=== PATIENT | female | born 1990 | race Caucasian/White ===

== ENCOUNTER 2017-12-22 15:53 | Observation (INO) | payer SELFPAY ==
[2017-12-22] MEDS ORDERED: ONDANSETRON HCL IV 4 MG/2 ML VIAL IV ONE (16:18)
[2017-12-22] MEDS ORDERED: 0.9 % SODIUM CHLORIDE 1,000 ML BAG IV ONE ×2 (16:18→17:09)
--- NOTE | 2017-12-22 16:23 | Emergency Department Record ---
History of Present Illness - General Chief complaint: Vomiting Stated complaint: VOMITING/ WORM IN VOMIT Time Seen by Provider: 12/22/17 16:09 Source: Patient Mode of Arrival: Ambulatory Limitations: No limitations - History of Present Illness Initial comments: The patient is here due to having nausea, vomiting, diarrhea, and AP off and on for 2 days. She was vomiting at one point and felt she may have vomited a small worm up. She denies any fever, worms in her stool, any hx of abdominal surgeries , or any bleeding in the stool or vomit and any recent travel. The patient states she has had multiple episodes of vomiting for 2 days along with watery diarrhea. The patient denies any hx of heavy alcohol use. MD complaint: Abdominal pain, Nausea, Vomiting Onset/Timin -: Days(s) Location: Diffuse Radiation: None Improves with: None Worsens with: None Associated Symptoms: Fever/chills, Headaches, Loss of appetite, Nausea/vomiting - Related Data Home Medications Medication Instructions Recorded Confirmed Last Taken No Home Med [NO HOME MEDS] 12/22/17 12/22/17 Unknown Allergies Allergy/AdvReac Type Severity Reaction Status Date / Time No Known Drug Allergies Allergy Verified 12/22/17 16:11 Travel Screening - Travel/Exposure Within Last 30 Days Have you traveled within the last 30 days?: No Review of Systems Constitutional: Denies: Chills, Fever Eyes: Denies: Eye discharge ENT: Denies: Congestion Respiratory: Denies: Cough, Dyspnea Past Medical History - SOCIAL HISTORY Smoking Status: Current every day smoker Alcohol Use: None Drug Use: None - RESPIRATORY Hx Respiratory Disorders: No - CARDIOVASCULAR Hx Cardio Disorders: No - NEURO Hx Neuro Disorders: No - GI Hx GI Disorders: No - Hx Genitourinary Disorders: No - ENDOCRINE Hx Endocrine Disorders: No - MUSCULOSKELETAL Hx Musculoskeletal Disorders: No - PSYCH Hx Psych Problems: No - HEMATOLOGY/ONCOLOGY Hx Hematology/Oncology Disorders: No Family Medical History Any Significant Family History?: No Physical Exam - General General Appearance: Alert, Oriented x3, Cooperative, No acute distress - Head Head exam: Atraumatic, Normocephalic, Normal inspection - Eye Eye exam: Normal appearance, PERRL, EOMI - ENT Throat exam: Normal inspection. negative: Tonsillar erythema, Tonsillar exudate - Neck Neck exam: Normal inspection - Respiratory Respiratory exam: Normal lung sounds bilaterally. negative: Respiratory distress - Cardiovascular Cardiovascular Exam: Regular rate, Normal rhythm, Normal heart sounds, Tachycardia - GI/Abdominal GI/Abdominal exam: Soft, Normal bowel sounds, Tenderness (There is very mild diffuse tenderness in all 4 quads but the abdomen is soft.). negative: Distended, Guarding, Rebound, Rigid - Extremities Extremities exam: Normal inspection, Full ROM, Normal capillary refill. negative: Tenderness - Neurological Neurological exam: Alert. negative: Motor sensory deficit Course Vital Signs 12/22/17 15:59 Temperature 98.1 F Pulse Rate [ 125 H Pulse Ox Probe] Respiratory 16 Rate Blood Pressure 136/86 [Left Arm] Pulse Ox 98 - Reevaluation(s) Reevaluation #1: The patient is doing a lot better at this time. She states the nausea is much improved and she is able to eat ice chips. She denies any AP and on exam her abdomen is very soft and nontender in all 4 quads. I did discuss the significant dehydration she is demonstrating on her lab work and did recommend overnight hospital admission and the patient did agree. I then did discuss the case with Ariadna (RECEPTIONIST CLERK) and she does accept the patient for Dr. Villar. 12/22/17 17:31 Reevaluation #2: The patient is doing very well after the Ativan. I did discuss the alcohol level of .05 with her and now she states she was binge drinking for the last 2 days. The patient no longer is tachycardic and has no tremors and she clearly appears to be in mild alcohol withdrawal at this time. She does have Ativan ordered and will continue that on the floor. I also did discuss the recent events with Ariadna. 12/22/17 17:54 Reevaluation #3: The patient is doing much better at this time. She has no nausea, vomiting, or diarrhea. The patient is no longer exhibiting any tremors and she did keep her oral potassium down with no vomiting. 12/22/17 18:28 Medical Decision Making - Data Complexity MDM Data: Labs Ordered and/or Reviewed - Lab Data Result diagrams: 12/22/17 16:42 12/22/17 16:42 Disposition Disposition: Admit Clinical Impression: Dehydration Disposition: Still a Patient at [facility] Decision to Admit: Admit from ER Decision to Admit Date: 12/22/17 Decision to Admit Time: 17:34 Accepting Physician: Jian. Time Discussed w/Accepting Physician: 17:34 Condition: (2) Stable Time of Disposition: 17:34 Quality - Quality Measures Quality Measures: N/A - Blood Pressure Screening View Details: Yes Does Patient Have Any of the Following: No Blood Pressure Classification: Pre-Hypertensive BP Reading Systolic Measurement: 117 Diastolic Measurement: 80 Screening for High Blood Pressure: < Pre-Hypertensive BP, F/U Documented > [ [id number]] Pre-Hypertensive Follow-up Interventions: Referral to alternative/primary care provider.
[2017-12-22 16:45] LABS: HEMATOCRIT 38.6 % (35.0-47.0); HEMOGLOBIN 12.8 gm/dl (11.6-16.0); MEAN CORPUSCULAR HEMOGLOBIN 34.5 pg (27-33); MEAN CORPUSCULAR HGB CONC 33.2 g/dl (32-36); MEAN PLATELET VOLUME 9.4 fl (7.4-10.4); PLATELET COUNT 203 K/uL (130-400); RED BLOOD COUNT 3.71 M/uL (3.80-5.40); RED CELL DISTRIBUTION WIDTH 13.7 % (11.5-14.5)
[2017-12-22 16:58] LABS: BLOOD UREA NITROGEN 9 mg/dL (6-20)
[2017-12-22 16:59] LABS: CREATININE 0.5 mg/dL (0.5-0.9); EST GLOMERULAR FILTRATION RATE > 60 mL/min; TOTAL PROTEIN 7.5 g/dL (6.6-8.7)
[2017-12-22 17:01] LABS: GLUCOSE,RANDOM 73 mg/dL (74-109)
[2017-12-22 17:03] LABS: ALT/SGPT 128 U/L (<33)
[2017-12-22 17:04] LABS: ALBUMIN 4.7 g/dL (4.0-5.0); ALKALINE PHOSPHATASE 91 U/L (35-104); AST/SGOT 362 U/L (10.0-35.0); BILIRUBIN,DIRECT 0.6 mg/dL (0-0.3); LIPASE 22 U/L (13-60)
[2017-12-22 17:06] LABS: C-REACTIVE PROTEIN < 0.50 mg/dL (<0.5)
[2017-12-22 17:13] LABS: URINE APPEARANCE CLEAR; URINE BILIRUBIN NEGATIVE (NEGATIVE); URINE BLOOD TRACE-I (NEGATIVE); URINE COLOR YELLOW; URINE GLUCOSE (UA) NEGATIVE (NEGATIVE); URINE LEUKOCYTE ESTERASE NEGATIVE (NEGATIVE); URINE NITRITE NEGATIVE (NEGATIVE); URINE PROTEIN TRACE (NEGATIVE); URINE UROBILINOGEN 0.2 E.U./dL (0.20 - 1.00)
[2017-12-22 17:17] LABS: AMPHETAMINE SCREEN URINE NOT DETECTED; BARBITURATE SCREEN URINE NOT DETECTED; BENZODIAZEPINE SCREEN URINE NOT DETECTED; COCAINE SCREEN URINE NOT DETECTED; METHADONE SCREEN URINE NOT DETECTED; METHAMPHETAMINE SCREEN NOT DETECTED; OPIATE SCREEN URINE NOT DETECTED; OXYCODONE SCREEN URINE NOT DETECTED; PHENCYCLIDINE SCREEN URINE NOT DETECTED; PROPOXYPHENE SCREEN URINE NOT DETECTED; THC SCREEN URINE NOT DETECTED; TRICYCLIC ANTIDEPRESSANT SCRN NOT DETECTED
[2017-12-22 17:23] LABS: URINE HYALINE CAST 0 - 5 /lpf; URINE RBC 0 - 2 (NONE SEEN); URINE WBC 0 - 2 (0-2/hpf)
[2017-12-22] MEDS ORDERED: LORAZEPAM 2 MG/ML VIAL IV ONE (17:24)
[2017-12-22] MEDS ORDERED: POTASSIUM CHLORIDE 20 MEQ TABLET PO ONE (17:35)
[2017-12-22] MEDS ORDERED: LORAZEPAM 2 MG/ML VIAL IV PRN (17:38)
[2017-12-22] MEDS ORDERED: PANTOPRAZOLE SODIUM IV 40 MG VIAL IV SCH (18:53)
[2017-12-22] MEDS ORDERED: ACETAMINOPHEN 500 MG TABLET PO PRN (18:53)
[2017-12-22] MEDS ORDERED: ONDANSETRON HCL IV 4 MG/2 ML VIAL IVP PRN (18:53)
[2017-12-22] MEDS: POTASSIUM CHLORIDE/D5-0.9%NACL 20 MEQ/1,000 ML BAG IV SCH (19:35)
[2017-12-23] MEDS: POTASSIUM CHLORIDE/D5-0.9%NACL 20 MEQ/1,000 ML BAG IV SCH (03:47)
[2017-12-23 06:11] LABS: BASO % 0.2 % (0-6); EOS % 0.9 % (0-6); GRAN % 52.3 % (47-80); HEMATOCRIT 35.4 % (35.0-47.0); HEMOGLOBIN 11.5 gm/dl (11.6-16.0); LYMPH % 37.6 % (16-45); MEAN CORPUSCULAR HEMOGLOBIN 34.1 pg (27-33); MEAN CORPUSCULAR HGB CONC 32.5 g/dl (32-36); MEAN PLATELET VOLUME 9.6 fl (7.4-10.4); PLATELET COUNT 152 K/uL (130-400); RED BLOOD COUNT 3.37 M/uL (3.80-5.40); RED CELL DISTRIBUTION WIDTH 13.7 % (11.5-14.5); WHITE BLOOD COUNT W/O DIFF 4.3 K/uL (4.2-12.2)
[2017-12-23 06:28] LABS: ALBUMIN 3.5 g/dL (4.0-5.0); BILIRUBIN,DIRECT 0.4 mg/dL (0-0.3); BILIRUBIN,TOTAL 1.4 mg/dL (0.2-1.0); TOTAL PROTEIN 5.7 g/dL (6.6-8.7)
[2017-12-23 06:39] LABS: BLOOD UREA NITROGEN 4 mg/dL (6-20); CREATININE 0.4 mg/dL (0.5-0.9); EST GLOMERULAR FILTRATION RATE > 60 mL/min; GLUCOSE,RANDOM 130 mg/dL (74-109)
[2017-12-23] MEDS ORDERED: ONDANSETRON 4 MG ODT TABLET SL PRN (09:57)
--- NOTE | 2017-12-23 09:58 | History & Physical ---
History of Present Illness - Date of Service Date of Service for History & Physical: 12/23/17 - History of Present Illness Admitting Diagnosis: 1. Acute Severe Dehydration History of Present Illness: Ms. Moulton is a 27 year-old female who presented to the ED the afternoon of 12/22/17 with complaint of nausea, vomiting, diarrhea, and abdominal pain intermittently for 2 days. She was vomiting at one point and she thought she may have vomited up a small worm. She denies any fever, worms in her stool, history of abdominal surgeries, or blood in her vomit or stool and recent travel. She stated that she has had multiple episodes of vomiting for 2 days along with watery diarrhea. She denied any history of heavy alcohol use. She does not take any medications and she does not have any pertinent health history. In the ED, her heart rate was 125, BP 136/86, RR 16, oxygen of 98% on room air, and temp of 98.1F. She did have some tremors. Her labs demonstrated K of 3.2 (treated with Klor), AST 362, ALT 128, anion gap of 36, and etoh of 0.052. She was treated with zofran and ativan and afterwards, she reported feeling much better. She denied nausea, her tremors and tachycardia improved as well. Dr. Lewis did discuss likely mild alcohol withdrawal based on lab results and physical assessment finding and pt. did admit to binge drinking over the last 2 days. She was admitted for observation for her dehydration demonstrated on her labs and suspected mild alcohol withdrawal. 12/23/17 1000: Pt. is resting comfortably in bed. She states that she has not had any diarrhea since admission and her nausea has greatly improved. She was slightly nauseated this morning after breakfast, but she was treated with IV zofran and symptoms improved. Her labs have improved: K 3.8, Anion gap now 15.0, AST 210 and ALT 85. Will plan to discharge home with zofran PO and recommend increasing fluids and stopping alcohol consumption. Also, highly recommended pt. to establish care with PCP. Travel Screening - Travel/Exposure Within Last 30 Days Have you traveled within the last 30 days?: No - Travel/Exposure Within Last Year Have you traveled outside the [place] in the last year?: No - Additonal Travel Details Have you been exposed to anyone with a communicable illness?: No - Travel Symptoms Symptom Screening: Weakness, Diarrhea, Vomiting, Stomach Pain, Lack of Appetite Review of Systems Constitutional: Denies: Chills, Fever Eyes: Denies: Eye discharge ENT: Denies: Congestion Respiratory: Denies: Cough, Dyspnea Cardiovascular: Reports: As per HPI. Denies: Arrhythmia, Chest pain, Dyspnea on exertion, Edema, Murmurs, Orthopnea, Palpitations, Paroxysmal nocturnal dyspnea, Rheumatic Fever, Syncope Endocrine: Reports: As per HPI. Denies: Fatigue, Heat or cold intolerance, Polydipsia, Polyuria Gastrointestinal: Reports: As per HPI, Nausea. Denies: Abdominal pain, Constipation, Diarrhea, Hematemesis, Hematochezia, Melena, Vomiting Genitourinary: Reports: As per HPI. Denies: Abnormal menses, Discharge, Dyspareunia, Dysuria, Frequency, Hematuria, Incontinence, Retention, Urgency Musculoskeletal: Reports: As per HPI. Denies: Arthralgia, Back pain, Gout, Joint swelling, Myalgia, Neck pain Skin: Reports: As per HPI. Denies: Bruising, Change in color, Change in hair/ nails, Lesions, Pruritus, Rash Neurological: Reports: As per HPI. Denies: Abnormal gait, Confusion, Headache, Numbness, Paresthesias, Seizure, Tingling, Tremors, Vertigo, Weakness Psychiatric: Reports: As per HPI. Denies: Anxiety, Auditory hallucinations, Depression, Homicidal thoughts, Suicidal thoughts, Visual hallucinations Hematological/Lymphatic: Reports: As per HPI. Denies: Anemia, Blood Clots, Easy bleeding, Easy bruising, Swollen glands Past Medical History - SOCIAL HISTORY Smoking Status: Current every day smoker Alcohol Use: Occasional Drug Use: None - RESPIRATORY Hx Respiratory Disorders: No - CARDIOVASCULAR Hx Cardio Disorders: No - NEURO Hx Neuro Disorders: No - GI Hx GI Disorders: No - Hx Genitourinary Disorders: No - ENDOCRINE Hx Endocrine Disorders: No - MUSCULOSKELETAL Hx Musculoskeletal Disorders: No - PSYCH Hx Psych Problems: No - HEMATOLOGY/ONCOLOGY Hx Hematology/Oncology Disorders: No Family Medical History Any Significant Family History?: No H&P Meds/Allergies - Allergies Allergies: Allergies Allergy/AdvReac Type Severity Reaction Status Date / Time No Known Drug Allergies Allergy Verified 12/22/17 16:11 - Home Medications Previous Rx's Medication Instructions Recorded Ondansetron [Zofran Odt] 4 mg SL Q8H PRN #15 tab.rapdis 12/23/17 - Active Medications Active Medications: Current Medications Acetaminophen (Tylenol 500mg Tab) 500 mg PO Q6H PRN PRN Reason: PAIN/TEMP Potassium Chloride/Dextrose/Sod Cl () 20 meq in 1,000 mls @ 125 mls/hr IV Q8H [facility] Last Admin: 12/23/17 03:47 Dose: 125 mls/hr Lorazepam (Ativan) 1 mg IV Q8H PRN PRN Reason: ANXIETY Ondansetron HCl (Zofran) 4 mg IVP Q4H PRN PRN Reason: NAUSEA Last Admin: 12/23/17 07:41 Dose: 4 mg Pantoprazole Sodium (Protonix Iv) 40 mg IV DAILY [facility] Last Admin: 12/22/17 20:08 Dose: 40 mg Physical Exam - Vital Signs Vital Signs: Vital Signs - Last 24 Hrs Temp Pulse Resp BP Pulse Ox 12/23/17 09:00 98.7 F 80 18 121/84 100 12/23/17 05:00 98.9 F 79 18 122/81 100 12/23/17 00:13 99.5 F 97 H 18 99/55 99 12/22/17 21:22 99 H 18 12/22/17 20:00 98.9 F 99 H 18 115/67 99 12/22/17 18:40 98.1 F 117 H 20 121/81 98 12/22/17 18:34 97.5 F L 96 H 16 117/80 100 12/22/17 17:34 105 H 20 132/83 99 12/22/17 15:59 98.1 F 125 H 16 136/86 98 - General General Appearance: Alert, Oriented x3, Cooperative, No acute distress Limitations: No limitations - Head Head exam: Atraumatic, Normocephalic, Normal inspection - Eye Eye exam: Normal appearance, PERRL, EOMI - ENT Throat exam: Normal inspection. negative: Tonsillar erythema, Tonsillar exudate - Neck Neck exam: Normal inspection - Respiratory Respiratory exam: Normal lung sounds bilaterally. negative: Respiratory distress - Cardiovascular Cardiovascular Exam: Regular rate, Normal rhythm, Normal heart sounds, Tachycardia - GI/Abdominal GI/Abdominal exam: Soft, Normal bowel sounds, Tenderness (There is very mild diffuse tenderness in all 4 quads but the abdomen is soft.). negative: Distended, Guarding, Rebound, Rigid - Extremities Extremities exam: Normal inspection, Full ROM, Normal capillary refill. negative: Tenderness - Neurological Neurological exam: Alert. negative: Motor sensory deficit Results - Labs Result Diagrams: 12/23/17 05:50 12/23/17 05:50 Labs Last 24 Hours: Laboratory Results - last 24 hr 12/22/17 12/22/17 12/22/17 16:35 16:42 16:42 WBC 11.0 RBC 3.71 L Hgb 12.8 Hct 38.6 MCV 104.0 H MCH 34.5 H MCHC 33.2 RDW 13.7 Plt Count 203 MPV 9.4 Gran % Neutrophils % 91.0 H Lymphocytes % Monocytes % Eosinophils % Not Reportable Basophils % Not Reportable Lymphocytes 6.0 L Monocytes 3.0 Sodium 142 Potassium 3.2 L Chloride 92 L Carbon Dioxide 14.0 L Anion Gap 36.0 H BUN 9 Creatinine 0.5 Estimated GFR > 60 Random Glucose 73 L Calcium 8.5 L Total Bilirubin 1.60 H Direct Bilirubin 0.6 H AST 362 H ALT 128 H Alkaline Phosphatase 91 C-Reactive Protein < 0.50 Total Protein 7.5 Albumin 4.7 Lipase 22 Serum HCG, Qual Urine Color Urine Appearance Urine pH Ur Specific [place] Urine Protein Urine Glucose (UA) Urine Ketones Urine Blood Urine Nitrite Urine Bilirubin Urine Urobilinogen Ur Leukocyte Esterase Urine RBC Urine WBC U Non-Squamous Epi Cells Hyaline Casts Urine Opiates Screen Ur Oxycodone Screen Urine Methadone Screen Ur Propoxyphene Screen Ur Barbituates Screen Ur Tricyclics Screen Ur Phencyclidine Scrn Ur Amphetamine Screen U Methamphetamines Scrn U Benzodiazepines Scrn Urine Cocaine Screen Urine Cannabis Screen Ethyl Alcohol 0.052 H 12/22/17 12/22/17 12/22/17 16:42 17:00 17:05 WBC RBC Hgb Hct MCV MCH MCHC RDW Plt Count MPV Gran % Neutrophils % Lymphocytes % Monocytes % Eosinophils % Basophils % Lymphocytes Monocytes Sodium Potassium Chloride Carbon Dioxide Anion Gap BUN Creatinine Estimated GFR Random Glucose Calcium Total Bilirubin Direct Bilirubin AST ALT Alkaline Phosphatase C-Reactive Protein Cancelled Total Protein Albumin Lipase Serum HCG, Qual Negative Urine Color Yellow Urine Appearance Clear Urine pH 6.0 Ur Specific [place] >= 1.030 Urine Protein Trace H Urine Glucose (UA) Negative Urine Ketones Urine Blood Trace-i Urine Nitrite Negative Urine Bilirubin Negative Urine Urobilinogen 0.2 Ur Leukocyte Esterase Negative Urine RBC 0 - 2 Urine WBC 0 - 2 U Non-Squamous Epi Cells 7 - 10 Hyaline Casts 0 - 5 Urine Opiates Screen Ur Oxycodone Screen Urine Methadone Screen Ur Propoxyphene Screen Ur Barbituates Screen Ur Tricyclics Screen Ur Phencyclidine Scrn Ur Amphetamine Screen U Methamphetamines Scrn U Benzodiazepines Scrn Urine Cocaine Screen Urine Cannabis Screen Ethyl Alcohol 12/22/17 12/23/17 12/23/17 17:05 05:50 05:50 WBC 4.3 RBC 3.37 L Hgb 11.5 L Hct 35.4 MCV 105.0 H MCH 34.1 H MCHC 32.5 RDW 13.7 Plt Count 152 MPV 9.6 Gran % 52.3 Neutrophils % Lymphocytes % 37.6 Monocytes % 9.0 Eosinophils % 0.9 Basophils % 0.2 Lymphocytes Monocytes Sodium 139 Potassium 3.8 Chloride 100 Carbon Dioxide 24.0 Anion Gap 15.0 BUN 4 L Creatinine 0.4 L Estimated GFR > 60 Random Glucose 130 H Calcium 7.9 L Total Bilirubin Direct Bilirubin AST ALT Alkaline Phosphatase C-Reactive Protein Total Protein Albumin Lipase Serum HCG, Qual Urine Color Urine Appearance Urine pH Ur Specific [place] Urine Protein Urine Glucose (UA) Urine Ketones Urine Blood Urine Nitrite Urine Bilirubin Urine Urobilinogen Ur Leukocyte Esterase Urine RBC Urine WBC U Non-Squamous Epi Cells Hyaline Casts Urine Opiates Screen Not detected Ur Oxycodone Screen Not detected Urine Methadone Screen Not detected Ur Propoxyphene Screen Not detected Ur Barbituates Screen Not detected Ur Tricyclics Screen Not detected Ur Phencyclidine Scrn Not detected Ur Amphetamine Screen Not detected U Methamphetamines Scrn Not detected U Benzodiazepines Scrn Not detected Urine Cocaine Screen Not detected Urine Cannabis Screen Not detected Ethyl Alcohol 12/23/17 05:50 WBC RBC Hgb Hct MCV MCH MCHC RDW Plt Count MPV Gran % Neutrophils % Lymphocytes % Monocytes % Eosinophils % Basophils % Lymphocytes Monocytes Sodium Potassium Chloride Carbon Dioxide Anion Gap BUN Creatinine Estimated GFR Random Glucose Calcium Total Bilirubin 1.40 H Direct Bilirubin 0.4 H AST 210 H ALT 85 H Alkaline Phosphatase 68 C-Reactive Protein Total Protein 5.7 L Albumin 3.5 L Lipase Serum HCG, Qual Urine Color Urine Appearance Urine pH Ur Specific [place] Urine Protein Urine Glucose (UA) Urine Ketones Urine Blood Urine Nitrite Urine Bilirubin Urine Urobilinogen Ur Leukocyte Esterase Urine RBC Urine WBC U Non-Squamous Epi Cells Hyaline Casts Urine Opiates Screen Ur Oxycodone Screen Urine Methadone Screen Ur Propoxyphene Screen Ur Barbituates Screen Ur Tricyclics Screen Ur Phencyclidine Scrn Ur Amphetamine Screen U Methamphetamines Scrn U Benzodiazepines Scrn Urine Cocaine Screen Urine Cannabis Screen Ethyl Alcohol VTE H&P Assessment - Risk for VTE Risk for VTE: Yes Risk Level: Very Low Risk Assessment Date: 12/23/17 Risk Assessment Time: 10:14 VTE Orders Placed or Will Be Placed: No VTE Reason for No Prophylaxis: Not Indicated (No comorbidities, pt. is d/c home today) Plan - Detailed Diagnosis and Plan (1) Dehydration Current Visit: Yes Status: Acute Base Code: E86.0 - DEHYDRATION Comment: : -Pt. presented to ED with nausea, vomiting, and diarrhea, mild alcohol withdrawal -Pt. has recieved IV fluids @125ml/hr, zofran for nausea, prn ativan for withdrawal symptoms -Labs continue to improve, VSS, pt. presently denies any nausea, vomiting, and diarrhea -Will d/c home today and provide po zofran and encourage increasing fluid intake and avoidance of alcohol (2) At risk for deep venous thrombosis Current Visit: Yes Status: Acute Base Code: Z91.89 - OTH PERSONAL RISK FACTORS, NOT ELSEWHERE CLASSIFIED Comment: 12/23/17: -Pt. is at low risk for DVT, will plan to d/c home today and pt. will return to normal level of activity (3) Full code status Current Visit: Yes Status: Acute Base Code: Z78.9 - OTHER SPECIFIED HEALTH STATUS Comment: 12/23/17: -Pt. is a full code
--- NOTE | 2017-12-23 10:01 | Discharge Summary ---
Providers Discharge Summary Date: 12/23/17 Date of admission: 12/22/17 18:30 Expected Date of Discharge: 12/23/17 Attending physician: CLARISSE WOOD Physical Exam - Vital Signs Vital Signs: Vital Signs - Last 24 Hrs Temp Pulse Resp BP Pulse Ox 12/23/17 09:00 98.7 F 80 18 121/84 100 12/23/17 05:00 98.9 F 79 18 122/81 100 12/23/17 00:13 99.5 F 97 H 18 99/55 99 12/22/17 21:22 99 H 18 12/22/17 20:00 98.9 F 99 H 18 115/67 99 12/22/17 18:40 98.1 F 117 H 20 121/81 98 12/22/17 18:34 97.5 F L 96 H 16 117/80 100 12/22/17 17:34 105 H 20 132/83 99 12/22/17 15:59 98.1 F 125 H 16 136/86 98 - General General Appearance: Alert, Oriented x3, Cooperative, No acute distress Limitations: No limitations - Head Head exam: Atraumatic, Normocephalic, Normal inspection - Eye Eye exam: Normal appearance, PERRL, EOMI - ENT ENT exam: Normal exam, Mucous membranes moist Ear exam: Normal external inspection. negative: External canal tenderness Nasal Exam: Normal inspection. negative: Discharge, Sinus tenderness Mouth exam: Normal external inspection, Tongue normal Teeth exam: Normal inspection. negative: Dental caries Throat exam: Normal inspection. negative: Tonsillar erythema, Tonsillar exudate - Neck Neck exam: Normal inspection - Respiratory Respiratory exam: Normal lung sounds bilaterally. negative: Respiratory distress - Cardiovascular Cardiovascular Exam: Regular rate, Normal rhythm, Normal heart sounds, Tachycardia - GI/Abdominal GI/Abdominal exam: Soft, Normal bowel sounds. negative: Distended, Guarding, Rebound, Rigid, Tenderness - Extremities Extremities exam: Normal inspection, Full ROM, Normal capillary refill. negative: Tenderness - Neurological Neurological exam: Alert, Other (Resting tremor). negative: Motor sensory deficit - Psychiatric Psychiatric exam: Normal affect, Normal mood Hospitalization - Hospitalization Admission Diagnosis: 1. Acute Severe Dehydration - Problem List/Discharge Diagnosis (1) Dehydration Current Visit: Yes Status: Acute Base Code: E86.0 - DEHYDRATION Comment: : -Pt. presented to ED with nausea, vomiting, and diarrhea, mild alcohol withdrawal -Pt. has recieved IV fluids @125ml/hr, zofran for nausea, prn ativan for withdrawal symptoms -Labs continue to improve, VSS, pt. presently denies any nausea, vomiting, and diarrhea -Will d/c home today and provide po zofran and encourage increasing fluid intake and avoidance of alcohol (2) At risk for deep venous thrombosis Current Visit: Yes Status: Acute Base Code: Z91.89 - OTH PERSONAL RISK FACTORS, NOT ELSEWHERE CLASSIFIED Comment: 12/23/17: -Pt. is at low risk for DVT, will plan to d/c home today and pt. will return to normal level of activity (3) Full code status Current Visit: Yes Status: Acute Base Code: Z78.9 - OTHER SPECIFIED HEALTH STATUS Comment: 12/23/17: -Pt. is a full code - Disposition Discharge home, self-care - Hospitalization Course Disposition: Home, Self-Care Hospital Course: Ms. Moulton is a 27 year-old female who presented to the ED the afternoon of 12/22/17 with complaint of nausea, vomiting, diarrhea, and abdominal pain intermittently for 2 days. She was vomiting at one point and she thought she may have vomited up a small worm. She denies any fever, worms in her stool, history of abdominal surgeries, or blood in her vomit or stool and recent travel. She stated that she has had multiple episodes of vomiting for 2 days along with watery diarrhea. She denied any history of heavy alcohol use. She does not take any medications and she does not have any pertinent health history. In the ED, her heart rate was 125, BP 136/86, RR 16, oxygen of 98% on room air, and temp of 98.1F. She did have some tremors. Her labs demonstrated K of 3.2 (treated with Klor), AST 362, ALT 128, anion gap of 36, and etoh of 0.052. She was treated with zofran and ativan and afterwards, she reported feeling much better. She denied nausea, her tremors and tachycardia improved as well. Dr. Lewis did discuss likely mild alcohol withdrawal based on lab results and physical assessment finding and pt. did admit to binge drinking over the last 2 days. She was admitted for observation for her dehydration demonstrated on her labs and suspected mild alcohol withdrawal. 6/17/18 1000: Pt. is resting comfortably in bed. She states that she has not had any diarrhea since admission and her nausea has greatly improved. She was slightly nauseated this morning after breakfast, but she was treated with IV zofran and symptoms improved. Her labs have improved: K 3.8, Anion gap now 15.0, AST 210 and ALT 85. Will plan to discharge home with zofran PO and recommend increasing fluids and stopping alcohol consumption. Also, highly recommended pt. to establish care with PCP. Abnormal Labs: Abnormal Lab Results 12/22/17 12/22/17 12/22/17 Range/Units 16:35 16:42 16:42 RBC 3.71 L (3.80-5.40) M/uL Hgb (11.6-16.0) gm/dl MCV 104.0 H (81-97) fl MCH 34.5 H (27-33) pg Neutrophils % 91.0 H (47-80) % Lymphocytes 6.0 L (16-45) % Potassium 3.2 L (3.4-4.5) mmol/L Chloride 92 L (98-107) mmol/L Carbon Dioxide 14.0 L (22-29) mmol/L Anion Gap 36.0 H (7-16) BUN (6-20) mg/dL Creatinine (0.5-0.9) mg/dL Random Glucose 73 L (74-109) mg/dL Calcium 8.5 L (8.6-10.0) mg/dL Total Bilirubin 1.60 H (0.2-1.0) mg/dL Direct Bilirubin 0.6 H (0-0.3) mg/dL AST 362 H (10.0-35.0) U/L ALT 128 H (<33) U/L Total Protein (6.6-8.7) g/dL Albumin (4.0-5.0) g/dL Urine Protein (NEGATIVE) Ethyl Alcohol 0.052 H (0-0.010) g/dL 12/22/17 12/23/17 12/23/17 Range/Units 17:05 05:50 05:50 RBC 3.37 L (3.80-5.40) M/uL Hgb 11.5 L (11.6-16.0) gm/dl MCV 105.0 H (81-97) fl MCH 34.1 H (27-33) pg Neutrophils % (47-80) % Lymphocytes (16-45) % Potassium (3.4-4.5) mmol/L Chloride (98-107) mmol/L Carbon Dioxide (22-29) mmol/L Anion Gap (7-16) BUN 4 L (6-20) mg/dL Creatinine 0.4 L (0.5-0.9) mg/dL Random Glucose 130 H (74-109) mg/dL Calcium 7.9 L (8.6-10.0) mg/dL Total Bilirubin (0.2-1.0) mg/dL Direct Bilirubin (0-0.3) mg/dL AST (10.0-35.0) U/L ALT (<33) U/L Total Protein (6.6-8.7) g/dL Albumin (4.0-5.0) g/dL Urine Protein Trace H (NEGATIVE) Ethyl Alcohol (0-0.010) g/dL 12/23/17 Range/Units 05:50 RBC (3.80-5.40) M/uL Hgb (11.6-16.0) gm/dl MCV (81-97) fl MCH (27-33) pg Neutrophils % (47-80) % Lymphocytes (16-45) % Potassium (3.4-4.5) mmol/L Chloride (98-107) mmol/L Carbon Dioxide (22-29) mmol/L Anion Gap (7-16) BUN (6-20) mg/dL Creatinine (0.5-0.9) mg/dL Random Glucose (74-109) mg/dL Calcium (8.6-10.0) mg/dL Total Bilirubin 1.40 H (0.2-1.0) mg/dL Direct Bilirubin 0.4 H (0-0.3) mg/dL AST 210 H (10.0-35.0) U/L ALT 85 H (<33) U/L Total Protein 5.7 L (6.6-8.7) g/dL Albumin 3.5 L (4.0-5.0) g/dL Urine Protein (NEGATIVE) Ethyl Alcohol (0-0.010) g/dL Condition at Discharge: (2) Stable VTE Discharge VTE Reason For No Overlap Therapy: Not Indicated Discharge Medications - Discharge Medications Prescriptions: Ondansetron [Zofran Odt] 4 mg SL Q8H PRN #15 tab.rapdis PRN Reason: Nausea/Vomiting Home Medications: Ambulatory Orders Ondansetron [Zofran Odt] 4 mg SL Q8H PRN #15 tab.rapdis 12/23/17 [Last Taken Unknown] Discharge Plan - Discharge Instructions Activity at Discharge: Increase Activity as Tolerated Diet at Discharge: Advance to Usual Diet Instructions: Acute Nausea and Vomiting (ED) Additional Instructions: Gradually advance diet as tolerated Make sure to increase fluids Avoid alcoholic beverages Take zofran 4mg up to three times per day for nausea Follow up with a primary care provider in 7-10 days Return to the ED if you experience any worsening symptoms Quality Measures - Quality Measures Quality Measures: Documentation of Current Medications in Medical Record, Screening for High Blood Pressure and F/U Documented - Current Medications Quality Measure: Measure #130: Documentation of Current Medications Documentation of Current Medications: <Current Medications Documented/Reviewed> [G8427] - Blood Pressure Screening Quality Measure: Screening for High Blood Pressure and Follow-Up Documented Does Patient Have Any of the Following: No Blood Pressure Classification: Pre-Hypertensive BP Reading Systolic Measurement: 121 Diastolic Measurement: 84 Screening for High Blood Pressure: < Pre-Hypertensive BP, F/U Documented > [ G8950] Pre-Hypertensive Follow-up Interventions: Follow-up with rescreen every year. - Elder Abuse Suspicion Index EASI Reference Information: Jazz DICKERSON, Sidra C, Jossue D, Lorin Tinajero.Development and validation of a tool to assist physicians identification of elder abuse: The Elder Abuse Suspicion Index (EASI ). Journal of Elder Abuse and Neglect, 2008; 20 (3): 276-300.
== END 2017-12-23 11:00 | disposition home or self-care (01) ==
LOC: ER 15:53 → MEDSURG 18:30
PROVIDERS: ADMIT Internal Medicine; ATTEND Internal Medicine
DX: E86.0 Dehydration (principal); R19.7 Diarrhea, unspecified; R10.84 Generalized abdominal pain; F17.210 Nicotine dependence, cigarettes, uncomplicated
CPT/HCPCS: 80048; 80076; 80305; 80320; 81001; 83690; 84703; 85025; 85027; 86140; 96365; 96366; 99220; 99285; C9113; J2405; J3480; J7030

== ENCOUNTER 2019-07-24 18:32 | Emergency (ER) | payer MEDICAID ==
[2019-07-24 19:20] LABS: URINE APPEARANCE SL CLOUDY; URINE BILIRUBIN NEGATIVE (NEGATIVE); URINE BLOOD SMALL (NEGATIVE); URINE COLOR YELLOW; URINE GLUCOSE (UA) NEGATIVE (NEGATIVE); URINE KETONE NEGATIVE (NEGATIVE); URINE LEUKOCYTE ESTERASE NEGATIVE (NEGATIVE); URINE NITRITE NEGATIVE (NEGATIVE); URINE UROBILINOGEN 0.2 E.U./dL (0.20 - 1.00)
[2019-07-24 19:21] LABS: ABSOLUTE NEUTROPHIL COUNT 3.68; BASO % 0.4 % (0-6); EOS % 0.2 % (0-6); GRAN % 64.8 % (47-80); HEMATOCRIT 44.3 % (35.0-47.0); HEMOGLOBIN 14.9 gm/dl (11.6-16.0); LYMPH % 27.9 % (16-45); MEAN CELL VOLUME 95.5 fl (81-97); MEAN CORPUSCULAR HEMOGLOBIN 32.1 pg (27-33); MEAN CORPUSCULAR HGB CONC 33.6 g/dl (32-36); MEAN PLATELET VOLUME 9.8 fl (7.4-10.4); MONO % 6.7 % (0-9); PLATELET COUNT 284 K/uL (130-400); RED BLOOD COUNT 4.64 M/uL (3.80-5.40); RED CELL DISTRIBUTION WIDTH 14.2 % (11.5-14.5); WHITE BLOOD COUNT W/O DIFF 5.7 K/uL (4.2-12.2)
[2019-07-24 19:23] LABS: AMPHETAMINE SCREEN URINE NOT DETECTED; BARBITURATE SCREEN URINE NOT DETECTED; BENZODIAZEPINE SCREEN URINE NOT DETECTED; COCAINE SCREEN URINE NOT DETECTED; METHADONE SCREEN URINE NOT DETECTED; METHAMPHETAMINE SCREEN NOT DETECTED; OPIATE SCREEN URINE NOT DETECTED; OXYCODONE SCREEN URINE NOT DETECTED; PHENCYCLIDINE SCREEN URINE NOT DETECTED; PROPOXYPHENE SCREEN URINE NOT DETECTED; THC SCREEN URINE NOT DETECTED; TRICYCLIC ANTIDEPRESSANT SCRN NOT DETECTED
[2019-07-24 19:28] LABS: URINE BACTERIA FEW; URINE RBC 0 - 2 (NONE SEEN); URINE WBC 0 - 2 (0-2/hpf)
[2019-07-24 19:29] LABS: HCG,QUALITATIVE URINE NEGATIVE (NEGATIVE)
[2019-07-24] MEDS ORDERED: MVI, ADULT NO.4 WITH VIT K 10 ML, THIAMINE HCL IV 100 MG in 0.9 % SODIUM CHLORIDE 1000M... IV SCH ×3 (19:30)
[2019-07-24 19:31] LABS: BLOOD UREA NITROGEN 8 mg/dL (6-20); CREATININE 0.6 mg/dL (0.5-0.9); EST GLOMERULAR FILTRATION RATE > 60 mL/min; LIPASE 39 U/L (13-60); TOTAL PROTEIN 8.5 g/dL (6.6-8.7)
[2019-07-24 19:33] LABS: ALCOHOL 0.407 g/dL (0-0.010); GLUCOSE,RANDOM 202 mg/dL (74-109)
[2019-07-24 19:36] LABS: ALB/GLOB RATIO 1.9 (1.1-1.8); ALBUMIN 5.6 g/dL (4.0-5.0); ALKALINE PHOSPHATASE 80 U/L (35-104); ALT/SGPT 108 U/L (<33); AST/SGOT 131 U/L (10.0-35.0)
[2019-07-24] MEDS ORDERED: POTASSIUM CHLORIDE 20 MEQ TABLET PO ONE (19:41)
[2019-07-24] MEDS ORDERED: KETOROLAC 30 MG/ML VIAL IVP ONE (20:17)
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
[2019-07-24] MEDS ORDERED: LORAZEPAM 2 MG/ML VIAL IV ONE (21:16)
[2019-07-24] MEDS ORDERED: NICOTINE14 MG/24 HOUR PATCH TD SCH (21:30)
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
[2019-07-25] MEDS ORDERED: LORAZEPAM 2 MG/ML VIAL IV ONE ×2 (00:55→04:46)
== END 2019-07-25 06:05 | disposition home or self-care (01) ==
LOC: ER 18:32
DX: S20.212A Contusion of left front wall of thorax, initial encounter (principal); S20.211A Contusion of right front wall of thorax, initial encounter; S20.229A Contusion of unspecified back wall of thorax, initial encounter; S80.10XA Contusion of unspecified lower leg, initial encounter; S40.029A Contusion of unspecified upper arm, initial encounter; F10.120 Alcohol abuse with intoxication, uncomplicated; Y90.8 Blood alcohol level of 240 mg/100 ml or more; F17.210 Nicotine dependence, cigarettes, uncomplicated; V03.90XA Pedestrian on foot injured in collision with car, pick-up truck or van, unspecified whether traffic or nontraffic accident, initial encounter; Y92.008 Other place in unspecified non-institutional (private) residence as the place of occurrence of the external cause
CPT/HCPCS: 99284 ×2; 96376; 96365; 96375; 83690; 85025; 80053; 81001; 81025; 80305; 72125; 71260; 74177; G0480; Q9967; J1885; J2060 ×2; 80320; J3411; J7030

== ENCOUNTER 2019-07-30 06:32 | Emergency (ER) | payer MEDICAID ==
[2019-07-30 06:55] LABS: HEMATOCRIT 43.6 % (35.0-47.0); HEMOGLOBIN 15.1 gm/dl (11.6-16.0); MEAN CELL VOLUME 94.2 fl (81-97); MEAN CORPUSCULAR HEMOGLOBIN 32.6 pg (27-33); MEAN CORPUSCULAR HGB CONC 34.6 g/dl (32-36); MEAN PLATELET VOLUME 10.4 fl (7.4-10.4); PLATELET COUNT 158 K/uL (130-400); RED BLOOD COUNT 4.63 M/uL (3.80-5.40); RED CELL DISTRIBUTION WIDTH 13.7 % (11.5-14.5); WHITE BLOOD COUNT W/O DIFF 3.9 K/uL (4.2-12.2)
[2019-07-30] MEDS ORDERED: 0.9 % SODIUM CHLORIDE 1,000 ML BAG IV ONE (07:04)
[2019-07-30 07:09] LABS: BLOOD UREA NITROGEN 6 mg/dL (6-20); CREATININE 0.6 mg/dL (0.5-0.9); EST GLOMERULAR FILTRATION RATE > 60 mL/min; TOTAL PROTEIN 8.2 g/dL (6.6-8.7)
--- NOTE | 2019-07-30 07:10 | Emergency Department Record ---
History of Present Illness - General Chief Complaint: Alcohol Intoxication Stated Complaint: ETOH Time Seen by Provider: 07/30/19 06:56 Source: Patient Mode of Arrival: Ambulatory Limitations: No limitations - History of Present Illness Initial Comments: The patient is here after being brought to the ER by EMS due to being to intoxicated at home. The patient states she is a binge drinker and has been drinking heavily recently. Her roomate called the police due to the patient being to drunk and thinks she needs to go to Rehab. The patient has no desire to go to rehab and would just like to go home. She denies any injury or illness. The patient is not suicidal or homicidal. MD Complaint: Alcohol intoxication Last Drink: Unknown -: Hour(s) Chronic Alcohol Use: Yes Previous Visits for Alcohol Intoxication?: Yes Recent Trauma: No Treatments Prior to Arrival: None - [place] Coma Scale Eye Response: (4) Open spontaneously Motor Response: (6) Obeys commands Verbal Response: (5) Oriented [place] Total: 15 - Related Data Allergies Allergy/AdvReac Type Severity Reaction Status Date / Time No Known Drug Allergies Allergy Verified 07/24/19 18:47 Travel Screening - Travel/Exposure Within Last 30 Days Have you traveled within the last 30 days?: No - Travel/Exposure Within Last Year Have you traveled outside the [place] in the last year?: No - Additonal Travel Details Have you been exposed to anyone with a communicable illness?: No - Travel Symptoms Symptom Screening: None Review of Systems Constitutional: Denies: Chills, Fever Eyes: Denies: Eye discharge ENT: Denies: Congestion Respiratory: Denies: Cough, Dyspnea Cardiovascular: Denies: Chest pain Endocrine: Denies: Fatigue Gastrointestinal: Denies: Nausea Genitourinary: Denies: Dysuria Musculoskeletal: Denies: Arthralgia Skin: Denies: Bruising Past Medical History - SOCIAL HISTORY Smoking Status: Current every day smoker Alcohol Use: Heavy Drug Use: None - RESPIRATORY Hx Respiratory Disorders: No - CARDIOVASCULAR Hx Cardio Disorders: No - NEURO Hx Neuro Disorders: Yes Hx Headaches: Yes - GI Hx GI Disorders: Yes Hx Reflux: Yes Hx Irritable Bowel: Yes - Hx Genitourinary Disorders: No - ENDOCRINE Hx Endocrine Disorders: No - MUSCULOSKELETAL Hx Musculoskeletal Disorders: No - PSYCH Hx Psych Problems: No - HEMATOLOGY/ONCOLOGY Hx Hematology/Oncology Disorders: No Family Medical History Any Significant Family History?: No Physical Exam - General General Appearance: Alert, Cooperative, No acute distress (The patient does have slurred speech and is obviously intoxicated.) - Head Head exam: Atraumatic - Eye Eye exam: Normal appearance, PERRL - ENT Throat exam: Normal inspection. negative: Tonsillar erythema, Tonsillar exudate - Neck Neck exam: Normal inspection, Full ROM. negative: Tenderness - Respiratory Respiratory exam: Normal lung sounds bilaterally. negative: Respiratory distress - Cardiovascular Cardiovascular Exam: Regular rate, Normal rhythm, Normal heart sounds - GI/Abdominal GI/Abdominal exam: Soft, Normal bowel sounds. negative: Tenderness - Extremities Extremities exam: Normal inspection, Full ROM, Normal capillary refill. negative: Tenderness - Neurological Neurological exam: Alert. negative: Motor sensory deficit - Psychiatric Psychiatric exam: negative: Anxious, Homicidal ideation, Suicidal ideation Course Vital Signs 07/30/19 06:33 Temperature 98.6 F Pulse Rate [ 108 H Pulse Ox Probe] Respiratory 20 Rate Blood Pressure 102/71 [Right Arm] Pulse Ox 95 - Reevaluation(s) Reevaluation #1: The patient is doing very well at this time. She is sleeping in the room and has normal respirations and HR. 07/30/19 9:00 Reevaluation #2: The patient is doing well at this time. She is up talking and drinking water without issues with normal vitals. 07/30/19 10:55 Reevaluation #3: The patient is doing very well at this time. She is up walking and talking normally with no slurred speech or ataxia. She is eating and drinking normally and feels ready for home. The patient denies any suicidal ideation or thoughts and does not want to go to rehab. 07/30/19 12:19 Reevaluation #4: The patient is doing well at this time. I again offered to get her help with her drinking and she is declining that offer. She states she never wanted to be here in the first place and would just like to go home. She also again denies any suicidal ideation. 07/30/19 13:16 Medical Decision Making - Lab Data Result diagrams: 07/30/19 06:40 07/30/19 06:40 Lab Results 07/30/19 Range/Units 06:40 WBC 3.9 L (4.2-12.2) K/uL RBC 4.63 (3.80-5.40) M/uL Hgb 15.1 (11.6-16.0) gm/dl Hct 43.6 (35.0-47.0) % MCV 94.2 (81-97) fl MCH 32.6 (27-33) pg MCHC 34.6 (32-36) g/dl RDW 13.7 (11.5-14.5) % Plt Count 158 (130-400) K/uL MPV 10.4 (7.4-10.4) fl Eosinophils % Not Reportable Basophils % Not Reportable Absolute Neutrophils Not Reportable Disposition Disposition: Discharge Clinical Impression: Alcohol intoxication Qualifiers: Complication of substance-induced condition: uncomplicated Qualified Code(s): F10.920 - Alcohol use, unspecified with intoxication, uncomplicated Disposition: Home, Self-Care Condition: (2) Stable Instructions: Alcohol Intoxication (ED) Additional Instructions: Please decrease your alcohol intake and please try to get into AA if possible. Please see your doctor for recheck next week and return to the ER for any problems. Forms: Patient Portal Access Time of Disposition: 12:22 Quality - Quality Measures Quality Measures: N/A - Blood Pressure Screening View Details: Yes Does Patient Have Any of the Following: No Blood Pressure Classification: Normal BP Reading Systolic Measurement: 105 Diastolic Measurement: 65 Screening for High Blood Pressure: < Normal BP, F/U Not Required > [[id number]]
[2019-07-30 07:11] LABS: ALCOHOL 0.408 g/dL (0-0.010); GLUCOSE,RANDOM 100 mg/dL (74-109)
[2019-07-30 07:14] LABS: ALB/GLOB RATIO 1.8 (1.1-1.8); ALBUMIN 5.3 g/dL (4.0-5.0); ALKALINE PHOSPHATASE 96 U/L (35-104); ALT/SGPT 97 U/L (<33); AST/SGOT 151 U/L (10.0-35.0)
[2019-07-30] MEDS ORDERED: POTASSIUM CHLORIDE 20 MEQ TABLET PO ONE ×2 (07:26→12:14)
[2019-07-30] MEDS ORDERED: ONDANSETRON HCL IV 4 MG/2 ML VIAL IVP ONE (12:25)
== END 2019-07-30 13:53 | disposition home or self-care (01) ==
LOC: ER 06:32
DX: F10.120 Alcohol abuse with intoxication, uncomplicated (principal); Y90.8 Blood alcohol level of 240 mg/100 ml or more; F17.210 Nicotine dependence, cigarettes, uncomplicated
CPT/HCPCS: 80053; 80320; 85027; 96361; 96374; 99284; J2405; J7030